=== PATIENT | female | born 1985 | race Caucasian/White ===

== ENCOUNTER 2016-06-28 15:12 | Emergency (ER) | payer BC, OTHER ==
[~2016-06-28] VITALS: Wt 57.0 kg
[2016-06-28] MEDS ORDERED: KETOROLAC 30 MG INJ IM STA (16:10)
[2016-06-28] MEDS ORDERED: DIAZEPAM 5 MG TAB PO ONE (16:30)
--- NOTE | 2016-06-28 17:05 | RADRPT ---
PROCEDURE: XR Cervical Spine. CLINICAL INDICATION: Neck pain TECHNIQUE: AP and lateral views of the cervical spine were obtained. COMPARISON: None available FINDINGS: Mineralization is within normal limits. No fracture or osseous lesion is identified. Vertebral bod ies are normal in height. Cervical lordosis is straightened. No vertebral subluxation is seen. In tervertebral discs are normal in height. Facet joints appear maintained. Prevertebral soft tissues , predental space and atlantoaxial joint are unremarkable. RPTAT:HJJR IMPRESSION: Straightening of the normal lordosis possibly from positioning but unable to exclude muscle spasm, o therwise unremarkable limited cervical spine series. Physician Anna Date Time Electronically viewed and signed by Physician Anna on 06/28/2016 17:05 /
[2016-06-28] MEDS ORDERED: NAPR-260 PO (17:17)
--- NOTE | 2016-06-28 17:17 | ERD ---
ER Documentation Chief Complaint Date/Time DATE: 06/28/16 TIME: 17:14 Chief Complaint NECK PAIN X 1 WEK WORSE TODAY HPI Patient is a 30-year-old female with no past medical history who presents to the ED with neck pain and bilateral shoulder pain. She denies headache or dizziness. She denies trauma. She states that she has had this pain in the past and associates it with tension in her back. She states that she was stressed a few days ago due to family emergency and developed pain in her neck. She is able to move it but not at the extreme. She denies bowel or bladder incontinence. She denies numbness or tingling. She has taken ibuprofen for her symptoms with minimal relief. No other complaints. ROS All systems reviewed and are negative except as per history of present illness. Medications Home Meds Active Scripts Cyclobenzaprine Hcl* (Cyclobenzaprine Hcl*) 10 Mg Tablet, 10 MG PO TID, #15 TAB Prov:LARRY AVALOS PA-C 06/28/16 Naproxen* (Naprosyn*) 500 Mg Tablet, 500 MG PO BID Y for PAIN AND/OR INFLAMMATION, #30 TAB Prov:LARRY AVALOS PA-C 06/28/16 Allergies Allergies: Coded Allergies: No Known Drug Allergies (Verified Allergy, Unknown, 06/28/16) PMhx/Soc History of Surgery: Yes (Breast augmentation) Anesthesia Reaction: No Hx Neurological Disorder: No Hx Respiratory Disorders: No Hx Cardiac Disorders: No Hx Psychiatric Problems: No Hx Miscellaneous Medical Probl: Yes (herniated disc) Hx Alcohol Use: No Hx Substance Use: No Hx Tobacco Use: No Smoking Status: Never smoker FmHx Family History: No coronary disease, No diabetes, No other Physical Exam Vitals Vital Signs Date Time Temp Pulse Resp B/P Pulse Ox O2 Delivery O2 Flow Rate FiO2 06/28/16 15:16 98.1 71 18 135/72 99 Physical Exam GENERAL: Well-developed, well-nourished female. Appears in no acute distress. HEAD: Normocephalic, atraumatic. EYES: Pupils are equally reactive bilaterally. EOMs grossly intact. No conjunctival erythema. ENT: Moist mucous membranes. No uvula deviation. No kissing tonsils. No exudates. NECK: Supple. No lymphadenopathy or thyromegaly. No meningismus. negative kernig. negative brudinski. No paraspinal or spinal tenderness. Pain with extreme range of motion. LUNG: Clear to auscultation bilaterally. No rhonchi, wheezing, rales or coarse breath sounds. HEART: Regular rate and rhythm. No murmurs, rubs or gallops. Extremities: Equal pulses bilaterally. No peripheral clubbing, cyanosis or edema. No unilateral leg swelling. NEUROLOGIC: Alert and oriented. Moving all four extremities. 5/5 strength in all extremities. Normal speech. Steady gait. SKIN: Normal color. Warm and dry. No rashes or lesions. Capillary refill < 2 seconds Results 24 hrs Current Medications Medications (Trade) Dose Ordered Sig/Opal Route PRN Reason Start Time Stop Time Status Last Admin Dose Admin Ketorolac Tromethamine (Toradol) 30 mg ONCE STAT IM 06/28/16 16:10 06/28/16 16:12 DC 06/28/16 16:27 Diazepam (Valium) 2.5 mg ONCE ONCE PO 06/28/16 16:30 06/28/16 16:31 DC 06/28/16 16:28 Procedures/MDM ER COURSE: I kept the patient and/or family informed of laboratory and diagnostic imaging results throughout the emergency room course. IMAGING STUDIES [place] [id number] Radiology Main Line: [phone] DIAGNOSTIC IMAGING REPORT Patient: ESTEFANÍA MCPHERSON : 1985 Age: 30 Sex: F MR #: [id number] DOS: 06/28/16 1610 Ordering MD: LARRY AVALOS PA-C Location: [facility] Room/Bed: PROCEDURE: XR Cervical Spine. CLINICAL INDICATION: Neck pain TECHNIQUE: AP and lateral views of the cervical spine were obtained. COMPARISON: None available FINDINGS: Mineralization is within normal limits. No fracture or osseous lesion is identified. Vertebral bodies are normal in height. Cervical lordosis is straightened. No vertebral subluxation is seen. Intervertebral discs are normal in height. Facet joints appear maintained. Prevertebral soft tissues, predental space and atlantoaxial joint are unremarkable. RPTAT:HJJR IMPRESSION: Straightening of the normal lordosis possibly from positioning but unable to exclude muscle spasm, otherwise unremarkable limited cervical spine series. Physician Anna Date Time Electronically viewed and signed by Physician Anna on 06/28/2016 17:05 JR/ CC: LARRY AVALOS PA-C MEDICATIONS Toradol 30 mg IM. Valium 2.5 mg p.o. Tolerated well with no adverse reaction. MEDICAL DECISION MAKING: This is a 30 year old female with no past medical history who presents with neck pain 1 week. Vital signs were reviewed. Patient is afebrile. Patient is not hypoxic. Patient is not toxic or ill-appearing. Patient likely has muscle strain versus muscle spasm. Low suspicion for dislocation, fracture, epidural abscess, herniation, osteomyelitis, meningitis, neurological deficit. DISCHARGE: At this time, patient is stable for discharge and outpatient management with no new complaints during the ER course. Patient was sent home with Naprosyn and Flexeril. Patient will be discharged home with instructions to recheck for new or worsening symptoms such as fever, nausea, weakness, LOC and to follow up with primary care in the next 1-2 days. Patient was advised to return to the ER for any new or worsening symptoms. Plan was discussed and patient and/or family understands and agrees. Home instructions were given. Departure Diagnosis: Primary Impression: Neck pain Condition: Stable LARRY AVALOS PA-C June 28, 2016 17:17
[2016-06-28] MEDS ORDERED: CYCL-319 PO (17:18)
== END 2016-06-28 17:47 | disposition home or self-care (01) ==
LOC: FTE 15:12
DX: M54.2 Cervicalgia (principal)
CPT/HCPCS: 72040; 96372; 99284; J1885; Z7610